=== PATIENT | female | born 1990 | race Caucasian/White ===

== ENCOUNTER 2019-07-26 12:09 | Emergency (ER) | payer MEDICAID ==
[~2019-07-26] VITALS: Ht 157.5 cm; Wt 72.6 kg
[~2019-07-26 12:09] MED LIST: NKM
[2019-07-26 12:20] VITALS: BP 112/82
--- NOTE | 2019-07-26 12:20 | NUR ---
ED Nurse Note: pt is aaox4, vss, with no acute distress. Pt has a right upper thig laceration from broken glass at 4 AM. Pt admits to Cocaine usage, unknown amout taken. Friend at bed side. Pt is calm and with pain stated at 10/10.
--- NOTE | 2019-07-26 12:45 | Emergency Room Report ---
History of Present Illness General Chief Complaint: Laceration Source: Patient Present Illness HPI 29 YO female presents to the ED c/o laceration to the right thigh since 4am this am. pt. UTD with vaccinations. Patient reports 4 out of 10 severity tenderness she denies large suspicion for retained foreign body. Patient reports sustaining laceration from the bottom of a [employer] vodka bottle that she threw against the wall. Patient denies taking blood thinning medication she states that she was drinking alcohol and using cocaine last night. Patient reports that the bleeding has subsided at this time she states that palpation or walking exacerbates her pain. No other aggravating or relieving factors. Denies paresthesias or loss of gross motor movements distal to the laceration. Denies intentional self harm. Allergies: Coded Allergies: No Known Allergies (Unverified , 11/30/12) Patient History Past Medical History: see triage record Past Surgical History: none Pertinent Family History: none Now: No Immunizations: UTD Reviewed Nursing Documentation: PMH: Agreed; PSxH: Agreed Nursing Documentation-PMH Past Medical History: No Stated History Review of Systems All Other Systems: negative except mentioned in HPI Physical Exam Vital Signs Date Time Temp Pulse Resp B/P (MAP) Pulse Ox O2 Delivery O2 Flow Rate FiO2 07/26/19 12:12 98.4 138 16 118/83 (95) 99 Room Air Sp02 EP Interpretation: reviewed, normal General Appearance: no apparent distress, alert, GCS 15, non-toxic Head: normocephalic, atraumatic Eyes: bilateral eye normal inspection, bilateral eye PERRL ENT: hearing grossly normal, normal voice Neck: full range of motion Respiratory: lungs clear, normal breath sounds, speaking full sentences Cardiovascular #1: regular rate, rhythm Musculoskeletal: back normal, gait/station normal, normal range of motion, non- tender Neurologic: alert, oriented x3, responsive, motor strength/tone normal, sensory intact, speech normal, grossly normal Psychiatric: judgement/insight normal Skin: laceration - 7cm Right anterior thigh laceration, no visible fb, pressure irrigation performed Procedures Laceration/Wound Repair Laceration/Wound Repair : Consent: Verbal Wound Location: lower extremity - right anterior thigh Wound Length (cm): 7 Wound Explored: clean Irrigated w/ Saline (ccs): 200 Anesthesia: Lidocaine w/ Epi Volume Anesthetic (ccs): 5 Wound Repaired With: vishal Number of Sutures: 13 Sterile Dressing Applied?: Yes Splint Applied?: Yes - jorge wrap Type of Splint Applied: jorge wrap Sling Applied?: No Patient Tolerated: Well Complications: None Medical Decision Making PA Attestation Dr. Guzman Is my supervising Physician whom patient management has been discussed with. Diagnostic Impression: Primary Impression: Laceration ER Course 29 YO female presents to the ED c/o laceration to the right thigh since 4am this am. pt. UTD with vaccinations. Patient reports 4 out of 10 severity tenderness she denies large suspicion for retained foreign body. Patient reports sustaining laceration from the bottom of a [employer] vodka bottle that she threw against the wall. Patient denies taking blood thinning medication she states that she was drinking alcohol and using cocaine last night. Patient reports that the bleeding has subsided at this time she states that palpation or walking exacerbates her pain. No other aggravating or relieving factors. Denies paresthesias or loss of gross motor movements distal to the laceration. Denies intentional self harm. Ddx considered but are not limited to laceration, tendon injury, cellulitis, amputation Vital signs: are WNL, pt. is afebrile H&PE are most consistent with: Right thigh laceration approx 7 cm in length ORDERS: none required at this time, the diagnosis is clinical ED INTERVENTIONS: -Tylenol # 3 PO - The wound was copiously irrigated with normal saline, and explored for foreign body for which no FB was found. - pt. is anesthetized with 1%lidocaine w. epi. - The wound was approximated and closed using 13 Vishal -Bacitracin and sterile dressing is applied. Jorge wrap applied to the right thigh by quality analyst/technical writer. Pt. remains neurovascularly intact. -Patient is provided with crutches and instructed on their use Discussed with patient: That we make every effort to approximate the laceration as best as we can so that scarring will be as cosmetically pleasing as possible with our limited cosmetic skill set in the Emergency dept. Regardless of our best efforts there will be scarring after laceration repair. The extent of scarring is unknown at this time. DISCHARGE: At this time pt. is stable for d/c to home. Will provide printed patient care instructions, and any necessary prescriptions. Care plan and follow up instructions have been discussed with the patient prior to discharge. Last Vital Signs Date Time Temp Pulse Resp B/P (MAP) Pulse Ox O2 Delivery O2 Flow Rate FiO2 07/26/19 12:12 98.4 138 16 118/83 (95) 99 Room Air Disposition: HOME, SELF-CARE Condition: Stable Scripts Ibuprofen* (MOTRIN*) 600 Mg Tablet 600 MG ORAL THREE TIMES A DAY, #30 TAB 0 Refills Prov: Christine Rodriguez 07/26/19 Bacitracin/Polymyxin B Sulfate (BACITRACIN-POLYMYXIN OINTMENT) 28.35 Gm Oint...g. 1 APPLIC TP BID, #28.3 GM Prov: Christine Rodriguez 07/26/19 Cephalexin* (KEFLEX*) 500 Mg Capsule 500 MG ORAL EVERY 12 HOURS for 7 Days, #14 CAP 0 Refills Prov: Christine Rodriguez 07/26/19 Patient Instructions: Laceration Care, Adult Additional Instructions: Take medications as directed. Follow up with a Primary Care Provider in 3-5 days, even if your symptoms have resolved. --Please review list of primary care clinics, if you do not already have a primary care provider Return sooner to ED if new symptoms occur, or current symptoms become worse. - Please note that this Emergency Department Report was dictated using [employer] financial specialist technology software, occasionally this can lead to erroneous entry secondary to interpretation by the dictation equipment. Christine Rodriguez Jul 26, 2019 12:45
[2019-07-26] MEDS ORDERED: Lidocaine 2% 20mg/ml/EPI 0.01mg/ml 20ml INJ ONE (13:00)
[2019-07-26] MEDS ORDERED: Tylenol #3 tab (300mg/30mg) ORAL ONE (13:00)
[2019-07-26] MEDS ORDERED: BACITRACIN-P28.35 GM TP (13:32)
[2019-07-26] MEDS ORDERED: CEPHALEXIN500 MG ORAL (13:32)
[2019-07-26] MEDS ORDERED: IBUPROFEN600 MG ORAL (13:32)
--- NOTE | 2019-07-26 13:50 | NUR ---
ED Nurse Note: wound cleaned with NS and pressure per PA request.
--- NOTE | 2019-07-26 14:00 | NUR ---
ED Nurse Note: PA with pt to john gastelum.
[2019-07-26] MEDS ORDERED: Neosporin Oint Ud Pkt TOPIC ONE ×2 (14:15→14:20)
[2019-07-26 14:23] VITALS: BP 101/61
--- NOTE | 2019-07-26 14:23 | NUR ---
ER DISCHARGE NOTE: Patient is cleared to be discharged per ERMD, pt is aox4, on room air, with stable vital signs. pt was given dc and prescription instructions, pt was able to verbalize understanding, pt id band and pt was with family member. pt is able to ambulate with steady gait. pt took all belongings. Pt able to teach back use of crutches.
== END 2019-07-26 14:23 | disposition home or self-care (01) ==
LOC: EMR 12:30
DX: S71.111A Laceration without foreign body, right thigh, initial encounter (principal); W25.XXXA Contact with sharp glass, initial encounter; Y92.9 Unspecified place or not applicable
CPT/HCPCS: 12002; Z7502; 99283

== ENCOUNTER 2019-08-08 20:10 | Emergency (ER) | payer MEDICAID ==
[~2019-08-08] VITALS: Ht 154.9 cm; Wt 68.0 kg
[~2019-08-08 20:10] MED LIST changes: +BACITRACIN-P28.35 GM TP; +CEPHALEXIN500 MG ORAL; +IBUPROFEN600 MG ORAL
[2019-08-08 20:20] VITALS: BP 109/74
--- NOTE | 2019-08-08 20:25 | NUR ---
ED Nurse Note: pt presents to ED for a staple removal. pt has 13 oriana on her right thigh from a broken bottle on 07/25. she was advised to return in 2 weeks to have them removed. pt denies pain but does state that they itch. there is some redness and dry skin noted around the oriana. pt has no other complaints at this time.
--- NOTE | 2019-08-08 20:38 | Emergency Room Report ---
History of Present Illness General Chief Complaint: General Complaint Source: Patient Present Illness HPI 29-year-old female with no symptom hospital history here requesting oriana removal that was done at [facility] 13 days ago. Denies any fever and chills, increased pain, pus drainage from site. Has finished her antibiotics. Denies any reinjury. Denies chest pain, shortness of breath, palpitation, no other associated symptoms. 5 cm. Laceration is noted in the right anterior thigh and as I was removing the oriana still exposed to secondary intention however healing. Allergies: Coded Allergies: No Known Allergies (Unverified , 11/30/12) Patient History Past Medical History: see triage record Past Surgical History: unable to obtain Pertinent Family History: none Last Menstrual Period: 07/27/19 Now: No Immunizations: UTD Reviewed Nursing Documentation: PMH: Agreed; PSxH: Agreed Nursing Documentation-PMH Past Medical History: No Stated History Review of Systems All Other Systems: negative except mentioned in HPI Physical Exam Vital Signs Date Time Temp Pulse Resp B/P (MAP) Pulse Ox O2 Delivery O2 Flow Rate FiO2 08/08/19 20:14 98.4 70 19 109/74 (86) 99 Room Air Sp02 EP Interpretation: reviewed, normal General Appearance: no apparent distress, alert, GCS 15, non-toxic Head: normocephalic, atraumatic Eyes: bilateral eye normal inspection, bilateral eye PERRL ENT: hearing grossly normal, normal pharynx, no angioedema, normal voice Neck: full range of motion, supple/symm/no masses Respiratory: chest non-tender, lungs clear, normal breath sounds, no wheezing, speaking full sentences Cardiovascular #1: regular rate, rhythm, no edema, no murmur, normal capillary refill Gastrointestinal: normal bowel sounds, non tender, soft, non-distended, no guarding, no rebound Genitourinary: normal inspection, no CVA tenderness Musculoskeletal: back normal, gait/station normal, normal range of motion, non- tender Neurologic: alert, oriented x3, responsive, motor strength/tone normal, sensory intact, speech normal Psychiatric: judgement/insight normal, memory normal, mood/affect normal, no suicidal/homicidal ideation Skin: palpation normal, other - Repaired laceration right thigh Lymphatic: normal inspection, no adenopathy Procedures Laceration/Wound Repair Laceration/Wound Repair : Consent: Verbal Wound Location: lower extremity - right thigh Wound's Depth, Shape: into muscle Wound Length (cm): 5 Wound Explored: clean Wound Repaired With: Steri-strips, Dermabond Layer Closure?: Yes Sterile Dressing Applied?: Yes Splint Applied?: No Patient Tolerated: Poor Complications: None Progress 13 oriana were removed and open to secondary intention Medical Decision Making RILEY Attestation Diagnosis and treatment plans were reviewed and discussed with my supervising physician Dr. Guzman Diagnostic Impression: Primary Impression: Removal of staple Additional Impression: Laceration ER Course 29-year-old female with no symptom hospital history here requesting oriana removal that was done at [facility] 13 days ago. Denies any fever and chills, increased pain, pus drainage from site. Has finished her antibiotics. Denies any reinjury. Denies chest pain, shortness of breath, palpitation, no other associated symptoms. 5 cm. Laceration is noted in the right anterior thigh and as I was removing the oriana still exposed to secondary intention however healing. Ddx considered but are not limited to : Superficial laceration, deep laceration , tendon involvement with laceration, laceration with foreign body Vital signs: are WNL, pt. is afebrile H&PE are most consistent with: Superficial laceration secondary intention, removal of oriana ORDERS: Bactrim DS, ibuprofen 800 ED INTERVENTIONS: Ibuprofen, staple removal, and application of Dermabond and Steri-Strips DISCHARGE: At this time pt. is stable for d/c to home. Will provide printed patient care instructions, and any necessary prescriptions. Care plan and follow up instructions have been discussed with the patient prior to discharge. Will check in 48 hours and if worsening symptoms to emergency room sooner. Follow-up with primary care provider. Last Vital Signs Date Time Temp Pulse Resp B/P (MAP) Pulse Ox O2 Delivery O2 Flow Rate FiO2 08/08/19 20:14 98.4 70 19 109/74 (86) 99 Room Air Disposition: HOME, SELF-CARE Condition: Stable Scripts Ibuprofen (Ibu) 800 Mg Tablet 800 MG PO TID, #21 TAB Prov: Rodney Blum 08/08/19 Trimethoprim/Sulfamethoxazole 160/800* (BACTRIM DS TABLET*) 1 Each Tablet 1 TAB ORAL TWICE A DAY for 7 Days, #14 TAB Prov: Rodney Blum 08/08/19 Referrals: [facility] (PCP) Patient Instructions: Stitches, Oriana, or Adhesive Wound Closure, Easy-to- Read Additional Instructions: Return to emergency room in 2 days for wound check. If worsening symptoms return sooner. Follow-up with primary care provider Rodney Blum Aug 08, 2019 20:38
[2019-08-08] MEDS ORDERED: BACTRIM DS TAB1 EAC1 ORAL (20:39)
[2019-08-08] MEDS ORDERED: IBU800 MG PO (20:39)
--- NOTE | 2019-08-08 20:40 | NUR ---
ED Nurse Note: dermabond and 5 steri-strips applied to pt thigh by ER Rodney LIN. biotechnologist put a bandage over scar, pt unerstands to return in 2 days for reevaluation
--- NOTE | 2019-08-08 20:49 | NUR ---
ED Nurse Note: Pt cleared by health care Provider for discharge. DC instructions/prescription was given and explained to pt and verbalized understanding of teachings. All medical deviecs such as ID band removed. Pt is AAO x4, ambulatory and left with all personal belongings.
[2019-08-08 20:50] VITALS: BP 109/74
== END 2019-08-08 20:48 | disposition home or self-care (01) ==
LOC: EMR 20:21
DX: S71.111D Laceration without foreign body, right thigh, subsequent encounter (principal); X58.XXXD Exposure to other specified factors, subsequent encounter; Z48.02 Encounter for removal of sutures
CPT/HCPCS: 12002; Z7502; 99282; 99283

== ENCOUNTER 2019-08-12 10:07 | Emergency (ER) | payer MEDICAID ==
[~2019-08-12] VITALS: Ht 157.5 cm; Wt 72.6 kg
[~2019-08-12 10:07] MED LIST changes: +BACTRIM DS TAB1 EAC1 ORAL; +IBU800 MG PO
[2019-08-12 10:10] VITALS: BP 112/72
--- NOTE | 2019-08-12 10:15 | NUR ---
ED Nurse Note: PT FROM HOME CAME IN FOR FF UP. PT'S STAPLE ON RIGHT UPPER LEG REMOVED Friday08/09/19. NO SIGNS OF REDNESS OR INFECTION. AAO X4,AMBULATORY.
[2019-08-12 10:36] VITALS: BP 125/76
--- NOTE | 2019-08-12 10:36 | NUR ---
ER DISCHARGE NOTE: Patient is cleared to be discharged per ERMD, pt is aox4, on room air, with stable vital signs. pt left without signing DC papers and pt id band removed. pt is able to ambulate with steady gait. pt took all belongings.
[2019-08-12] MEDS ORDERED: BACITRACIN1 EACH TOPIC (10:44)
--- NOTE | 2019-08-12 13:44 | Emergency Room Report ---
History of Present Illness General Chief Complaint: Wound Recheck/Suture Removal Source: Patient Present Illness HPI Patient presents with request of checking of her right upper leg laceration Patient had previous presentation with staple removal and Dermabond/Steri-Strip placement Now presents for reevaluation after the Steri-Strips Denies any discharge denies any fevers feels that the area is healing well Has not had a chance to follow-up with outpatient follow-up Allergies: Coded Allergies: No Known Allergies (Unverified , 11/30/12) Patient History Past Medical History: see triage record Last Menstrual Period: currently Now: No Reviewed Nursing Documentation: PMH: Agreed; PSxH: Agreed Nursing Documentation-PMH Past Medical History: No Stated History Review of Systems All Other Systems: negative except mentioned in HPI Physical Exam Vital Signs Date Time Temp Pulse Resp B/P (MAP) Pulse Ox O2 Delivery O2 Flow Rate FiO2 08/12/19 10:10 97.9 92 17 112/72 96 Room Air Sp02 EP Interpretation: reviewed, normal General Appearance: well appearing, no apparent distress Head: normocephalic, atraumatic Eyes: bilateral eye PERRL, bilateral eye EOMI ENT: hearing grossly normal, normal pharynx Respiratory: no respiratory distress, no retraction Musculoskeletal: normal inspection Neurologic: alert, oriented x3 Skin: other - The right mid upper quadriceps area does reveal healing laceration, the area appears to be approximately 3 to 4 cm there are 3 Steri- Strips across the top there is some scab formation noted, no obvious fluctuance or erythema Lymphatic: no adenopathy Medical Decision Making Diagnostic Impression: Primary Impression: Encounter for re-check of laceration wound ER Course Given the history and evaluation appears that the wound is healing appropriately or is secondary scab formation forming under the Steri-Strip patient will have continued care of the area At this time I feel that removal will lead to possible dehiscence And patient requires further outpatient follow-up And care until fully healed Last Vital Signs Date Time Temp Pulse Resp B/P (MAP) Pulse Ox O2 Delivery O2 Flow Rate FiO2 08/12/19 10:36 97.6 87 16 125/76 100 Room Air Status: improved Disposition: HOME, SELF-CARE Condition: Stable Scripts Bacitracin (BACITRACIN*) 1 Each Packet 1 PACKET TOPIC DAILY, #30 PACKET 0 Refills Prov: Martin Vila DO 08/12/19 Referrals: [facility] ([facility]P) [facility] Haylie Walton [facility] Patient Instructions: Wound Check Additional Instructions: Patient is provided with the discharge instructions notified to follow up with primary doctor in the next 2-3 days otherwise return to the er with any worsening symptoms. Please note that this report is being documented using [employer] technology. This can lead to erroneous entry secondary to incorrect interpretation by the dictating instrument. Martin Vila DO Aug 12, 2019 13:44
== END 2019-08-12 10:36 | disposition home or self-care (01) ==
LOC: EMR 10:30
DX: S71.111D Laceration without foreign body, right thigh, subsequent encounter (principal); X58.XXXD Exposure to other specified factors, subsequent encounter
CPT/HCPCS: 99281